=== PATIENT | female | born 1995 | race African-American/Black ===

== ENCOUNTER 2019-03-28 13:22 | Emergency (ER) | payer OTHER, SELFPAY ==
[2019-03-28 13:56] VITALS: BP 122/84; PULSE 98; RESP 16; TEMP 37.2; O2SAT 98
--- NOTE | 2019-03-28 14:42 | ED.GENADULT ---
HPI - General Adult General Chief complaint: Upper Respiratory Infection Stated complaint: Cough/Cold Time Seen by Provider: 03/28/19 14:42 Source: patient and RN notes reviewed Mode of arrival: ambulatory Limitations: no limitations History of Present Illness HPI narrative: 24-year-old -F[place] female presents with complains of upper respiratory symptoms, fever, body aches, cough, and intermittent headache (not the worst of her life) for 5 days. Mucinex, Vicks rub, and cough drops without relief. Constant dry cough and intermittent cough (green phlegm). Rhinorrhea and nasal congestion. Denies sore throat. High fevers, highest 101F axilla with intermittent chills. No drooling, neck or throat swelling. No chest pain, wheezing, or shortness of breath. No exacerbation factors. Denies nausea, vomiting, and abdominal pain. Tolerating liquids well. Sherman denies being , LMP unknown due to IUD in place. Some parts of this dictation were generated by voice recognition software and may contain typographical and/or grammatical inaccuracies. Related Data Allergies Allergy/AdvReac Type Severity Reaction Status Date / Time No Known Drug Allergies Allergy Unknown Unknown Verified 03/28/19 14:04 Review of Systems Review of Systems: Narrative: CONSTITUTIONAL: Complains of fever, chills. Denies sweats. EYES: Denies visual changes, redness, discharge. ENT: Denies rhinorrhea, congestion. Denies sore throat, otalgia. CARDIOVASCULAR: Denies chest pain, palpitations, edema. RESPIRATORY: Denies dyspnea, wheezing. Complains of dry cough, intermittent productive cough. GASTROINTESTINAL: Denies abdominal pain, nausea, vomiting, diarrhea. GENITOURINARY: Denies dysuria, hematuria, abnormal discharge. SKIN: Denies rash or itching. MUSCULOSKELETAL: Denies acute back pain, joint pain. Complains of myalgia. NEUROLOGIC: Denies numbness or focal weakness. Complains of intermittent CROW. PSYCHIATRIC: Denies anxiety or depression. All systems reviewed & are unremarkable except as noted in HPI and below. [facility] Past Medical History Medical History (Updated 03/29/19 @ 00:00 by Suzi Camacho) Hypertension Surgical History Surgical History (Updated 03/28/19 @ 14:51 by LALY Toure) No significant past surgical history Family History Family History (Updated 03/28/19 @ 14:51 by LALY Toure) Grandparent Hypertension Social History Social History (Updated 03/28/19 @ 14:51 by LALY Toure) Smoking status: Never smoker Second hand tobacco smoke exposure: No Alcohol intake: current Alcohol use details: Occasional Living arrangements: with family Occupation/Education: occupation Gender identity (if verbalized by the patient): Female Comments At time of signature, agree with nurse past medical, surgical, social, and family history. There is no relevant family history pertinent to the presenting complaint. Exam Narrative: Exam Narrative: GENERAL: This is a well-nourished, well-developed patient, in no apparent distress. Talks in full sentences and ambulates with steady gait without dyspnea. HEAD: normocephalic, atraumatic. EYES: PERRL. Sclera clear/white. Vision is grossly intact. EARS: External ears normal, auditory canals clear and without drainage, TMs normal without perforation. Hearing grossly intact. NOSE: External nose normal with no obvious nasal discharge, nares with moderate redness and enlarged turbinates, clear rhinorrhea. THROAT: Mucous membranes moist, posterior pharynx with PND, mild erythema, no exudate, and normal tonsils. No drainage, no concern for Peritonsillar abscess. No drooling, trismus, or neck swelling. NECK: Neck supple, non-tender without lymphadenopathy, masses or thyromegaly. CARDIOVASCULAR: Regular rate and rhythm without murmurs, gallops, or rubs. RESPIRATORY: Clear to auscultation. Breath sounds equal bilaterally. No wheezes, rales, or rhonchi. Dry c
== END 2019-03-28 14:57 | disposition home or self-care (01) ==
PROVIDERS: Emergency Provider Nurse Practitioner Family
DX: B34.9 Viral infection, unspecified (principal); I10 Essential (primary) hypertension
CPT/HCPCS: 87804; 87880; 99213; G0463

== ENCOUNTER 2020-03-16 17:23 | Emergency (ER) | payer OTHER, SELFPAY ==
--- NOTE | 2020-03-16 17:34 | ED.GENADULT ---
HPI - General Adult General Chief complaint: Eye Problems Stated complaint: right eye swollen Time Seen by Provider: 03/16/20 17:34 Source: patient Mode of arrival: ambulatory Limitations: no limitations History of Present Illness HPI narrative: 25-year-old female patient presents to the [facility] with complaints of right thigh pain and swelling. Patient states that she felt something go into her eye that she was rubbing it and states that then became more irritated and swollen. Patient states this happened about 30 minutes prior to arrival today. Denies any sensitivity to light denies any discharge coming from it. Denies any vision changes at this time. Patient states it does feel itchy. Related Data Allergies Allergy/AdvReac Type Severity Reaction Status Date / Time No Known Drug Allergies Allergy Unknown Unknown Verified 03/16/20 17:36 Review of Systems Review of Systems: Narrative: CONSTITUTIONAL: Denies fever, chills, or sweats. EYES: Denies visual changes, positive right eye redness, denies discharge. ENT: Denies rhinorrhea, congestion, sore throat, or otalgia. CARDIOVASCULAR: Denies chest pain, palpitations, or edema. RESPIRATORY: Denies cough or dyspnea. GASTROINTESTINAL: Denies abdominal pain, nausea, vomiting, or diarrhea. GENITOURINARY: Denies dysuria or hematuria. SKIN: Denies rash or itching. MUSCULOSKELETAL: Denies back pain, joint pain, or myalgia. NEUROLOGIC: Denies headache, numbness, or weakness. PSYCHIATRIC: Denies anxiety or depression. [facility] Past Medical History Medical History Hypertension Surgical History Surgical History No significant past surgical history Family History Family History Grandparent Hypertension Social History Social History Smoking status: Never smoker Second hand tobacco smoke exposure: No Alcohol intake: current Gender identity (if verbalized by the patient): Female Comments At the time of my signature I agree with nursing past medical history, surgical, social, and family history. There is no relevant family history pertinent to the presenting complaint. Exam Narrative: Exam Narrative: GENERAL: Well-appearing, well-nourished, and in no acute distress. HEAD: Normocephalic, atraumatic. EYES: PERRLA and EOM intact without limitation or complaint of pain, no periorbital soft tissue swelling ,no erythema, warmth or tenderness noted, no obvious deformity. There was some lower lid swelling noted to the right eye. No crusting or swelling.no tearing or draining.No photophobia. No nystagmus No FB or lesion on lid eversion. Corneas grossly clear, no obvious FB or hyphens/hypopyon. injection to sclera. Lids and lashes clear. Patient has small abrasion noted to the cornea at the 8:00 area ENT: Nares clear, no rhinorrhea or epistaxis. Mucous membranes moist. NECK: Supple. No lymphadenopathy CHEST: Clear to auscultation. No respiratory distress. HEART: Regular rate and rhythm. No murmur heard. Normal peripheral pulses. ABDOMEN: Soft, nontender, nondistended, normal active bowel sounds. EXTREMITIES: Normal range of motion. No edema. SKIN: Warm, dry, no rash. NEURO: No focal deficits. Alert and oriented x3. Course Vital Signs Vital signs: Vital Signs Temperature 37.3 C 03/16/20 17:42 Pulse Rate 74 03/16/20 17:42 Respiratory Rate 16 03/16/20 17:42 Blood Pressure 116/71 03/16/20 17:42 Pulse Oximetry 99 03/16/20 17:42 Temperature 37.3 C 03/16/20 17:42 Pulse Rate 74 03/16/20 17:42 Respiratory Rate 16 03/16/20 17:42 Blood Pressure 116/71 03/16/20 17:42 Pulse Oximetry 99 03/16/20 17:42 Vital signs reviewed Procedures Other Procedure Procedure 1: Other Procedure: 1 drop of tetracaine placed in the right eye. Ri
[2020-03-16 17:42] VITALS: BP 116/71; PULSE 74; RESP 16; TEMP 37.3; O2SAT 99
== END 2020-03-16 18:00 | disposition home or self-care (01) ==
PROVIDERS: Emergency Provider Nurse Practitioner Family
DX: S05.01XA Injury of conjunctiva and corneal abrasion without foreign body, right eye, initial encounter (principal); X58.XXXA Exposure to other specified factors, initial encounter; I10 Essential (primary) hypertension
CPT/HCPCS: 99213; A9270; G0463

== ENCOUNTER 2020-07-18 17:23 | Emergency (ER) | payer OTHER, SELFPAY ==
[2020-07-18 17:34] VITALS: BP 129/82; PULSE 76; RESP 20; TEMP 36.3; O2SAT 100
--- NOTE | 2020-07-18 18:10 | ED.FEMALEGU ---
HPI - Female Genitourinary General Chief complaint: Urogenital-Female Stated complaint: Vaginal Discomfort Time Seen by Provider: 07/18/20 18:10 Source: patient, RN notes reviewed and old records reviewed Mode of arrival: ambulatory Limitations: no limitations History of Present Illness HPI Narrative: 25 year old female who presents to express care with complaints of pain with urination and pressure with urination for the past 3 days. Patient also states that she feels irritated and itchy in the vaginal area with thin white vaginal drainage noted. Patient denies any concern for STD's, denies any fevers, chills or any sweats. denoes any nausea or vomiting or abdominal pain.Patient states that she call her doctor and was ordered a Diflucan tab one which she took last night with no improvement in symptoms. MD elicited complaint: dysuria, vaginal discharge and genital itching Pertinent past history: IUD Onset (ago): day(s) (3) Location of symptoms: perineum and vaginal Severity: mild Female Urogenital Radiation: Non-Radiating Severity scale (1-10): 3 Related Data Home Medications Medication Instructions Recorded Confirmed fluoxetine mg 07/18/20 Allergies Allergy/AdvReac Type Severity Reaction Status Date / Time No Known Drug Allergies Allergy Unknown Unknown Verified 03/16/20 17:36 Review of Systems Review of Systems: Narrative: CONSTITUTIONAL: Denies fever, chills, or sweats. EYES: Denies visual changes, redness, or discharge. ENT: Denies rhinorrhea, congestion, sore throat, or otalgia. CARDIOVASCULAR: Denies chest pain, palpitations, or edema. RESPIRATORY: Denies cough or dyspnea. GASTROINTESTINAL: Denies abdominal pain, nausea, vomiting, or diarrhea. GENITOURINARY:Positive for dysuria no visible hematuria.white vaginal drainage and perineal itching SKIN: Denies rash or itching. MUSCULOSKELETAL: Denies back pain, joint pain, or myalgia. NEUROLOGIC: Denies headache, numbness, or weakness. PSYCHIATRIC: Positive history of anxiety or depression. All systems reviewed & are unremarkable except as noted in HPI and below PMFSH Past Medical History Medical History (Updated 07/22/20 @ 19:32 by Nae Downey NP) Anxiety and depression Hypertension with Surgical History Surgical History No significant past surgical history Family History Family History (Updated 07/22/20 @ 19:27 by Nae Downey NP) Grandparent Hypertension Sibling Asthma Social History Social History (Updated 07/22/20 @ 19:32 by Nae Downey NP) Smoking status: Current some day smoker Second hand tobacco smoke exposure: No Alcohol intake: current Gender identity (if verbalized by the patient): Female Comments At time of signature, agree with nursing past medical, surgical, social and family history. There is no relevant family history pertinent to the presenting complaint Exam Narrative: Exam Narrative: GENERAL: Well-appearing, well-nourished, and in no acute distress. HEAD: Normocephalic, atraumatic. EYES: PERRLA and EOMI. ENT: Nares clear, no rhinorrhea or epistaxis. Mucous membranes moist. NECK: Supple.no lymphadenopathy CHEST: Clear to auscultation. No respiratory distress.SAO2 100% on room air HEART: Regular rate and rhythm. No murmur heard. Normal peripheral pulses. ABDOMEN: Soft, nontender on palpation, nondistended, normal active bowel sounds.No CVA tenderness on examination. On inspection of vagina with speculum no external lesions noted,vaginal vargas pink, cervix noted without irregularity, IUD strings in vaginal canal also thin white drainage noted, Vaginal culture obtained and sent for analysis. EXTREMITIES: Normal range of motion. No edema. SKIN: Warm, dry, no rash. NEURO: No focal deficits. Alert and oriented x3. external Course Vital Signs Vital signs: Vital Signs Temperature 36.3 C L 07/18/20 17:34 Pulse Rate 76 07/18/20 17:3
--- NOTE | 2020-07-18 18:24 | PC.NURSE ---
vag. exam done by fnps and bv cx obtained.
== END 2020-07-18 18:34 | disposition home or self-care (01) ==
PROVIDERS: Emergency Provider Registered Nurse; PCP Family Medicine
DX: B37.3 Candidiasis of vulva and vagina (principal); R30.0 Dysuria; I10 Essential (primary) hypertension
CPT/HCPCS: 81003; 87070; 87077; 87086; 99213; G0463

== ENCOUNTER 2020-07-30 18:09 | Emergency (ER) | payer OTHER, SELFPAY ==
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
[2020-07-30 19:15] VITALS: BP 131/81; PULSE 92; RESP 18; TEMP 36.7; O2SAT 100
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
== END 2020-07-30 20:15 | disposition home or self-care (01) ==
PROVIDERS: Emergency Provider Family Medicine; PCP Family Medicine
DX: S39.012A Strain of muscle, fascia and tendon of lower back, initial encounter (principal); S29.012A Strain of muscle and tendon of back wall of thorax, initial encounter; F41.9 Anxiety disorder, unspecified; F32.9 Major depressive disorder, single episode, unspecified; F17.200 Nicotine dependence, unspecified, uncomplicated; V49.40XA Driver injured in collision with unspecified motor vehicles in traffic accident, initial encounter
CPT/HCPCS: 72100; 99283

== ENCOUNTER 2020-10-07 18:54 | Emergency (ER) | payer OTHER, SELFPAY ==
--- NOTE | 2020-10-07 19:53 | ED_ITS ---
HPI - URI/Sore Throat General Chief Complaint: Upper Respiratory Infection Stated Complaint: congestion Related Data Home Medications Medication Instructions Recorded Confirmed fluoxetine mg 07/18/20 Allergies Allergy/AdvReac Type Severity Reaction Status Date / Time No Known Drug Allergies Allergy Unknown Unknown Verified 03/16/20 17:36 [facility] Past Medical History Medical History Anxiety and depression Hypertension with Surgical History Surgical History No significant past surgical history Family History Family History Grandparent Hypertension Sibling Asthma Social History Social History Smoking status: Current some day smoker Second hand tobacco smoke exposure: No Alcohol intake: current Alcohol use details: Occasional Gender identity (if verbalized by the patient): Female Course Vital Signs Vital signs: Vital Signs Temperature 36.4 C 10/07/20 19:56 Pulse Rate 66 10/07/20 19:56 Respiratory Rate 16 10/07/20 19:56 Blood Pressure 114/70 10/07/20 19:56 Pulse Oximetry 99 10/07/20 19:56 Temperature 36.4 C 10/07/20 19:56 Pulse Rate 66 10/07/20 19:56 Respiratory Rate 16 10/07/20 19:56 Blood Pressure 114/70 10/07/20 19:56 Pulse Oximetry 99 10/07/20 19:56 MDM - URI/Sore Throat Differential Diagnosis Differential diagnosis: Likely upper respiratory infection Critical Care Time Critical Care Time Critical Care Time: No Discharge Plan Discharge Patient Disposition: Left Without Being Seen Instructions: Antibiotic Form Prescriptions: No Action fluoxetine 20 mg capsule RF: 0 Follow-up/Referrals: UNKNOWN,DOCTOR [Primary Care Provider] - Quality Arnold Coma Scale Eyes: Open Verbal: Oriented and Alert Motor: Follows Commands Arnold Coma Total Score: 15
[2020-10-07 19:56] VITALS: BP 114/70; PULSE 66; RESP 16; TEMP 36.4; O2SAT 99
== END 2020-10-07 19:56 | disposition left against medical advice (07) ==
PROVIDERS: Emergency Provider Registered Nurse
DX: Z53.21 Procedure and treatment not carried out due to patient leaving prior to being seen by health care provider (principal)
CPT/HCPCS: 99199

== ENCOUNTER 2021-02-24 09:15 | Emergency (ER) | payer OTHER, SELFPAY ==
[2021-02-24 09:22] VITALS: BP 122/80; PULSE 97; RESP 16; TEMP 37.7; O2SAT 98
--- NOTE | 2021-02-24 09:25 | ED.URI ---
HPI - URI/Sore Throat General Chief Complaint: Upper Respiratory Infection Stated Complaint: CROW/BODY ACHES/ABD PAIN/CONGESTION Time Seen by Provider: 02/24/21 09:29 Source: patient, RN notes reviewed and old records reviewed Mode of arrival: ambulatory Limitations: no limitations History of Present Illness HPI Narrative: 26-year-old female presents to the [facility] with complaints of headache, body aches, and chills that started at 3 AM this morning, 6 hours. Patient states that she is flu and COVID vaccinated. Reports 102 fever this morning. Has taken Mucinex. Denies sore throat, nasal congestion, cough. States after taking Mucinex her stomach did become upset. MD elicited complaint: fever Related Data Allergies Allergy/AdvReac Type Severity Reaction Status Date / Time No Known Drug Allergies Allergy Unknown Unknown Verified 02/24/21 09:47 Review of Systems Review of Systems: All systems reviewed & are unremarkable except as noted in HPI and below Constitutional: Constitutional: Reports as per HPI, Reports body ache(s), Reports chills, Reports fever(s) and Denies headache(s) Eyes: Eyes: Reports no additional eye complaints ENT: Reports as per HPI, Denies vertigo, Denies dizziness, Denies headache(s), Denies nasal congestion and Denies sore throat Cardiovascular: Cardiovascular: Reports no additional cardiovascular complaints, Denies chest pain, Denies syncope, Denies rapid heart rate and Denies dyspnea Respiratory: Respiratory: Reports no additional respiratory complaints, Denies cough, Denies dyspnea and Denies wheezing Gastrointestinal: Gastrointestinal: Reports no additional gastrointestinal complaints, Denies abdominal pain, Denies diarrhea, Denies nausea and Denies vomiting Musculoskeletal: Musculoskeletal: Reports as per HPI, Reports myalgias and Denies numbness Integumentary/Breasts: Skin/Breast: Reports system reviewed and no additional complaints, except as docu Neurologic: Reports system reviewed and no additional complaints, except as documented, Denies vertigo, Denies dizziness, Denies syncope, Denies headache(s), Denies focal weakness and Denies numbness Psychiatric: Psychiatric: Reports no additional psychiatric complaints Allergic/Immunologic: Allergic/Immunologic: Reports no additional allergic/immunologic complaints and Denies wheezing PMFSH Past Medical History Medical History Anxiety and depression Hypertension with Surgical History Surgical History No significant past surgical history Family History Family History Grandparent Hypertension Sibling Asthma Social History Social History Smoking status: Current some day smoker Second hand tobacco smoke exposure: No Alcohol intake: current Alcohol use details: Occasional Gender identity (if verbalized by the patient): Female Comments At the time of my signature, I reviewed and agree with the nursing past medical, surgical, social, and family history. There is no relevant family history pertinent to the patient complaint. Exam Const: General: cooperative, healthy appearing, no acute distress, well developed and alert Nutritional Appearance: well nourished Orientation/consciousness: patient oriented x3 Limitations: no limitations HENMT: Head: normal to inspection Ears: external ears normal, TM's normal bilaterally and EAC's normal General nose exam: Normal external nose present Face and sinus: normal facial exam Mouth: Yes moist mucous membranes Throat: posterior oropharynx normal Eyes: Conjunctivae: conjunctivae normal Pupils: Equal, round and reactive pupils present Neck: Neck: normal visual inspection, no lymphadenopathy and no meningeal signs Chest: Chest palpation & inspection: normal inspection of the chest Re
== END 2021-02-24 09:45 | disposition left against medical advice (07) ==
PROVIDERS: Emergency Provider Nurse Practitioner
DX: B34.9 Viral infection, unspecified (principal); Z20.822 Contact with and (suspected) exposure to COVID-19; F17.200 Nicotine dependence, unspecified, uncomplicated
CPT/HCPCS: 99211; G0463

== ENCOUNTER 2021-02-24 10:12 | Emergency (ER) | payer OTHER, SELFPAY ==
--- NOTE | 2021-02-24 10:21 | ED.URI ---
HPI - URI/Sore Throat General Chief Complaint: Upper Respiratory Infection Stated Complaint: Body Aches,Abdominal Pain,Fever,Fatigue Time Seen by Provider: 02/24/21 10:28 Source: patient and RN notes reviewed Mode of arrival: ambulatory Limitations: no limitations History of Present Illness HPI Narrative: 26-year-old female presents with concern for fever, body aches, abdominal pain, fatigue, headache. Reports symptoms worsened this morning. She reports an exposure at work and had to negative PCR COVID test in the last week due to the exposure. Reports in the last week she did not feel right , however her headache, fever, body aches, abdominal pain did not start till this morning around 3 AM. She reports taking Mucinex MD elicited complaint: other (Headache, fever) Related Data Allergies Allergy/AdvReac Type Severity Reaction Status Date / Time No Known Drug Allergies Allergy Unknown Unknown Verified 02/24/21 09:47 Review of Systems Review of Systems: CONSTITUTIONAL: Reports malaise, chills or fever. EYES: Denies visual changes, redness, or discharge. ENT: Denies rhinorrhea, congestion, sinus pain, otalgia and sore throat. CARDIOVASCULAR: Denies chest pain, palpitations, or edema. RESPIRATORY: Reports cough. Denies dyspnea. GASTROINTESTINAL: Reports abdominal pain. Denies nausea, vomiting, diarrhea SKIN: Denies rash or itching. MUSCULOSKELETAL: Reports myalgia. NEUROLOGIC: Reports headache. All systems reviewed & are unremarkable except as noted in HPI and below PMFSH Past Medical History Medical History Anxiety and depression Hypertension with Surgical History Surgical History No significant past surgical history Family History Family History Grandparent Hypertension Sibling Asthma Social History Social History Smoking status: Current some day smoker Second hand tobacco smoke exposure: No Alcohol intake: current Alcohol use details: Occasional Gender identity (if verbalized by the patient): Female Comments At time of signature, agree with nursing past medical, surgical, social and family history. There is no relevant family history pertinent to the presenting complaint Exam Narrative: GENERAL: Nontoxic-appearing, well-nourished, and in no acute distress. HEAD: Normocephalic EYES: PERRLA, conjunctivae clear ENT: Nares clear, clear discharge. Mucous membranes moist. TM pearly lynn with dull light reflex bilaterally; no tragal tenderness. Oropharynx not erythematous without lesions. Tonsils not enlarged and without exudate, no drooling, no hoarseness, no trismus, uvula midline. NECK: Supple. No lymphadenopathy CHEST: Clear to auscultation, breath sounds equal. No wheezing, rhonchi, rales, or stridor. No respiratory distress, speaks in full sentences. HEART: Regular rate and rhythm. No murmur heard. SKIN: Warm, dry, no rash. NEURO: Alert and oriented x3. PSYCH: Normal mood and affect Course Course Emergency Course: Patient is aware of diagnosis, understands and agrees to treatment plan. Anticipatory guidance given. Patient agrees to follow-up as directed and is aware of reasons to seek care at the emergency department. Portions of this record may have been created with voice recognition software Level of Care: Express Care Visit Vital Signs Vital signs: Reviewed. MDM - URI/Sore Throat MDM Narrative Medical decision making narrative: Differential diagnosis considered: Bustos virus, strep pharyngitis, allergic rhinitis, upper respiratory tract infection, sinusitis, rhinosinusitis, nasopharyngitis. viral pharyngitis, otitis media, otitis externa, pneumonia, bronchitis, viral cough syndrome, viral syndrome, and influenza. Exam findings show no acute concerns or changes; patient is non-toxic appea
[2021-02-24 10:24] VITALS: BP 115/76; PULSE 97; RESP 18; TEMP 37.2; O2SAT 99
== END 2021-02-24 10:56 | disposition home or self-care (01) ==
PROVIDERS: Emergency Provider Nurse Practitioner; PCP Family Medicine
DX: Z20.822 Contact with and (suspected) exposure to COVID-19 (principal); R50.9 Fever, unspecified; R52 Pain, unspecified; R10.9 Unspecified abdominal pain; R53.83 Other fatigue; R51.9 Headache, unspecified; F17.200 Nicotine dependence, unspecified, uncomplicated
CPT/HCPCS: 87804; 99213; G0463

== ENCOUNTER 2022-07-17 12:43 | Emergency (ER) | payer OTHER, SELFPAY ==
[2022-07-17 12:59] VITALS: BP 125/65; PULSE 73; RESP 16; TEMP 37.7; O2SAT 99
--- NOTE | 2022-07-17 13:01 | ED.GENADULT ---
HPI - General Adult General Chief complaint: Unspecified Stated complaint: hemorrhoid Time Seen by Provider: 07/17/22 13:00 Source: patient, RN notes reviewed and old records reviewed Mode of arrival: ambulatory Limitations: no limitations History of Present Illness HPI narrative: 27-year-old female presents to the [facility] with concerns for hemorrhoid. Noticed a tender area with some swelling to the rectal area this morning after she had a strain with a hard bowel movement Related Data Home Medications Medication Instructions Recorded Confirmed metronidazole 500 mg tablet mg 07/17/22 Allergies Allergy/AdvReac Type Severity Reaction Status Date / Time No Known Drug Allergies Allergy Unknown Unknown Verified 07/17/22 12:48 Review of Systems Review of Systems: All systems reviewed & are unremarkable except as noted in HPI and below Constitutional: Constitutional: Reports no additional constitutional complaints Eyes: Eyes: Reports no additional eye complaints ENT: Reports system reviewed and no additional complaints, except as documented Cardiovascular: Cardiovascular: Reports no additional cardiovascular complaints, Denies chest pain and Denies dyspnea Respiratory: Respiratory: Reports no additional respiratory complaints, Denies chest congestion, Denies cough and Denies dyspnea Gastrointestinal: Gastrointestinal: Reports as per HPI, Denies abdominal pain, Denies nausea and Denies vomiting Comments: Concern for hemorrhoid Musculoskeletal: Musculoskeletal: Reports no additional musculoskeletal complaints Integumentary/Breasts: Skin/Breast: Reports system reviewed and no additional complaints, except as docu Neurologic: Reports system reviewed and no additional complaints, except as documented Psychiatric: Psychiatric: Reports no additional psychiatric complaints Allergic/Immunologic: Allergic/Immunologic: Reports no additional allergic/immunologic complaints [facility] Past Medical History Medical History Anxiety and depression Hypertension with Surgical History Surgical History No significant past surgical history Family History Family History Grandparent Hypertension Sibling Asthma Social History Social History Smoking status: Current some day smoker Second hand tobacco smoke exposure: No Alcohol intake: current Alcohol use details: Occasional Living arrangements: with family Occupation/Education: occupation Gender identity (if verbalized by the patient): Female Comments At the time of my signature, I reviewed and agree with the nursing past medical, surgical, social, and family history. There is no relevant family history pertinent to the patient complaint. Exam Const: General: cooperative, healthy appearing, comfortable, no acute distress, well developed, alert and well nourished Nutritional Appearance: well nourished Orientation/consciousness: patient oriented x3 Limitations: no limitations HENMT: Head: normal to inspection Ears: hearing grossly normal bilaterally and external ears normal Face/Nose/Sinus: Normal external nose present, Normal nares present, Normal nasal mucous membranes and turbinates present and normal facial exam Face and sinus: normal facial exam Eyes: General: appearance normal, both eyes and all related structures Alignment and Position: alignment normal Periorbital: periorbital findings normal Pupils: Equal, round and reactive pupils present EOM: EOMs intact bilaterally Neck: Neck: normal visual inspection, full ROM, no lymphadenopathy and no meningeal signs Chest: Chest palpation & inspection: normal inspection of the chest Resp: Effort & Inspection: normal respiratory effort and able to speak in complete sentences
== END 2022-07-17 13:20 | disposition home or self-care (01) ==
PROVIDERS: Emergency Provider Nurse Practitioner; PCP Family Medicine
DX: K64.9 Unspecified hemorrhoids (principal); F17.200 Nicotine dependence, unspecified, uncomplicated
CPT/HCPCS: 99211; G0463

== ENCOUNTER 2023-07-21 12:33 | Outpatient (CLI) | payer OTHER, SELFPAY ==
--- NOTE | ~2023-07-21 | CT_ITS ---
Pre and postcontrast Head CT History: Recurrent headache Technique: Axial imaging of the brain was performed prior to and following intravenous administratio n of 100 cc of Omnipaque 350 contrast material.. Dose reduction technique was used on this scan by ut ilizing automated exposure control and iterative reconstruction technique. The dose-length product (D LP) was 1199.14 mGy-cm. Findings: There is no evidence of intracranial hemorrhage, mass lesion, or acute infarct. Brain par enchyma appears normal. The ventricles and subarachnoid spaces are normal in size. The calvarium ap pears normal. The visualized paranasal sinuses and mastoid air cells are clear. No abnormal postcontrast enhancement seen. Impression: No significant abnormality seen. Reviewed, dictated and finalized at [facility]. Impression: No significant abnormality seen.
[2023-07-21 13:05] LABS: Estimated Glomerular Filt Rate > 60
== END 2023-07-21 12:34 ==
PROVIDERS: PCP Family Medicine; Visit Provider Family Medicine
DX: R51.9 Headache, unspecified (principal); R41.3 Other amnesia
CPT/HCPCS: 70470; Q9967

== ENCOUNTER 2023-08-02 13:08 | Emergency (ER) | payer OTHER, SELFPAY ==
--- NOTE | 2023-08-02 13:30 | ED.FEMALEGU ---
HPI - Female Genitourinary General Chief complaint: Urogenital-Female Stated complaint: urinary issue Time Seen by Provider: 08/02/23 13:30 Source: patient and RN notes reviewed Mode of arrival: ambulatory Limitations: no limitations History of Present Illness HPI Narrative: 28-year-old female presented for complaint of burning with urination, frequency and urgency over the past 2 days. Denies hematuria, nausea, vomiting, abdominal pain, flank pain, constipation, diarrhea, fevers or chills. Denies concern for , currently on her Cycle. Tested negative for std's last week by obgyn. Related Data Home Medications Medication Instructions Recorded Confirmed norelgestromin 150 mcg-e.estradiol 1 patch transdermal WEEKLY 08/02/23 08/02/23 35 mcg/24 hr weekly transderm patch (Zafemy) Allergies Allergy/AdvReac Type Severity Reaction Status Date / Time No Known Drug Allergies Allergy Unknown Unknown Verified 08/02/23 13:15 Review of Systems Review of Systems: CONSTITUTIONAL: Denies body aches, fever, chills, or sweats. CARDIOVASCULAR: Denies chest pain, palpitations, or edema. RESPIRATORY: Denies cough or dyspnea. GASTROINTESTINAL: Denies abdominal pain, nausea, vomiting, or diarrhea. GENITOURINARY: Reports dysuria, frequency, urgency, denies hematuria, flank pain SKIN: Denies rash, itching, or wounds. MUSCULOSKELETAL: Denies back pain or myalgia. [facility] Past Medical History Medical History Anxiety and depression Hypertension with Surgical History Surgical History No significant past surgical history Family History Family History Grandparent Hypertension Sibling Asthma Social History Social History Smoking status: Current some day smoker Second hand tobacco smoke exposure: No Alcohol intake: current Alcohol use details: Occasional Living arrangements: with family Occupation/Education: occupation Gender identity (if verbalized by the patient): Female Comments At time of signature, I have reviewed and agree with nursing past medical, surgical, social and family history unless otherwise noted. Please see nursing chart for further information. There is no relevant family history pertinent to the presenting complaint Exam Narrative: GENERAL: Well-appearing and in no acute distress. ENT: Mucous membranes pink and moist. NECK: Normal AROM. Supple. CHEST: No respiratory distress. Clear to auscultation. HEART: Regular rate and rhythm. ABDOMEN: Soft, nontender, nondistended, normal active bowel sounds. No CVA tenderness MUSCULOSKELETAL: No bony tenderness. SKIN: Warm, dry, no rash. NEURO: No focal deficits. Alert and oriented x3. Gait steady. PSYCH: Normal affect. Course Course Emergency Course: Patient is aware of diagnosis, understands and agrees to treatment plan. Anticipatory guidance given. Patient agrees to follow-up as directed and is aware of reasons to seek care at the emergency department. Portions of this record may have been created with voice recognition software Level of Care: Express Care Visit Vital Signs Vital signs: Reviewed MDM - Female Genitourinary MDM Narrative Medical decision making narrative: Discussed physical exam findings and abx. Advised supportive measures and signs/symptoms to go to the ER. Pt is appropriate for outpt treatment and f/u. Differential Diagnosis Differential diagnosis: Likely urinary tract infection, bacterial vaginosis, vaginitis and cystitis Discharge Plan Discharge Clinical Impression: Urinary tract infection Qualifiers: Urinary tract infection type: site unspecified Hematuria presence: without hematuria Qualified Code(s): N39.0 - Urinary tract infection, site not specifi
[2023-08-02 13:33] VITALS: BP 130/74; PULSE 79; RESP 16; TEMP 37.4; O2SAT 100
== END 2023-08-02 13:45 | disposition home or self-care (01) ==
PROVIDERS: Emergency Provider Nurse Practitioner Family
DX: N39.0 Urinary tract infection, site not specified (principal); B96.20 Unspecified Escherichia coli [E. coli] as the cause of diseases classified elsewhere; F17.200 Nicotine dependence, unspecified, uncomplicated
CPT/HCPCS: 81003; 87077; 87086; 87088; 87186; 99213; G0463